=== PATIENT | male | born 1965 | race Caucasian/White ===

== ENCOUNTER 2017-02-01 06:30 | Emergency (ER) | payer SELFPAY ==
[2017-02-01 07:43] VITALS: RESP 14
--- NOTE | 2017-02-01 07:43 | C.PDOC ---
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
--- NOTE | 2017-02-01 07:45 | C.PDOC ---
History Of Present Illness 51 yr old male presents to the ER for methadone withdrawal for the past 1 week. Patient states he was kicked out of his program 1 week ago. Currently patient is complaining of chest pain, myalgia and coughing. Reports he is a smoker. Patient denies fever, SOB, nasal congestion, nausea, vomiting, abdominal pain, weakness or numbness. 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 Constitutional: Positive for: Other ((+) Myalgia ). Negative for: Fever ENT: Negative for: Nose Congestion Cardiovascular: Positive for: Chest Pain Respiratory: Positive for: Cough. Negative for: Shortness of Breath Gastrointestinal: Negative for: Nausea, Vomiting, Abdominal Pain Neurological: Negative for: Weakness, Numbness Physical Exam - Physical Exam Appears: Non-toxic, In Acute Distress (Mild distress) Skin: Warm, Dry, No Rash Head: Atraumatic, Normacephalic Throat: Normal, No Erythema, No Exudate, No Drooling Neck: Normal, Normal ROM, Supple Chest: Symmetrical, No Tenderness Cardiovascular: Rhythm Regular, No Murmur Respiratory: Normal Breath Sounds, No Rales, No Rhonchi, No Wheezing Extremity: Normal ROM, No Swelling Neurological/Psych: Oriented x3, Normal Speech, Normal Motor ED Course And Treatment - Laboratory Results Result Diagrams: 02/01/17 07:52 02/01/17 07:52 ECG: Interpreted By Me ECG Rhythm: Sinus Bradycardia ECG Interpretation: Normal Rate From EC (BPM) O2 Sat by Pulse Oximetry: 99 (RA ) Pulse Ox Interpretation: Normal - Radiology CXR: Interpreted by Me, Viewed By Me CXR Interpretation: Yes: No Acute Disease Progress - Re-Evaluation Re-evaluation Note: 02/01/17 08:46 STILL CO PERSIST GEN PAIN, CP, BACK PAIN. EKG, TROP PENDING no DETOX BED AVAIL PER CRISIS JORDON 02/01/17 09:26 REPEAT EKG [facility] PRIOR. SINUS VASQUEZ @ 50 NO FINDINGS C/W ACS. PT STILL CO GEN BODY ACHES, CHEST PAIN PROBABLE NARCOTIC WITHDRAWAL. - Data Reviewed Data Reviewed: Lab, Diagnostic imaging, Old records Medical Decision Making Medical Decision Making: PLAN: * CXR * CBC * BMP * Clonidine PO * Toradol IVP * Zofran IVP Disposition Counseled Patient/Family Regarding: Studies Performed, Diagnosis, Need For Followup - Disposition Referrals: [facility] [Outside] [facility] [Outside] [facility] [Other] Disposition: HOME/ ROUTINE Disposition Time: 10:45 Condition: GOOD Instructions: Opioid Withdrawal (ED), Noncardiac Chest Pain (ED) - Clinical Impression Clinical Impression: Chest pain, Narcotic withdrawal, Myalgia - Scribe Statement The provider has reviewed the documentation as recorded by the Scribe Sara Morgan Provider Attestation: All medical record entries made by the Scribe were at my direction and personally dictated by me. I have reviewed the chart and agree that the record accurately reflects my personal performance of the history, physical exam, medical decision making, and the department course for this patient. I have also personally directed, reviewed, and agree with the discharge instructions and disposition.
[2017-02-01 07:56] LABS: BASO % 0.8 % (0.0-2.0); EOS # 0.1 K/uL (0.0-0.7); EOS % 4.4 % (0.0-4.0); HEMOGLOBIN 13.7 g/dL (12.0-18.0); LYMPH # 1.2 K/uL (1.0-4.3); LYMPH % 45.1 % (20.0-40.0); MEAN CELL VOLUME 93.3 fL (80.0-94.0); MEAN CORPUSCULAR HEMOGLOBIN 29.9 pg (27.0-31.0); MEAN CORPUSCULAR HGB CONC 32.1 g/dL (33.0-37.0); MEAN PLATELET VOLUME 8.3 fL (7.2-11.7); MONO # 0.5 K/uL (0.0-0.8); MONO % 18.2 % (0.0-10.0); NEUT # 0.8 K/uL (1.8-7.0); NEUT % 31.5 % (50.0-75.0); NRBC % 0.1 % (0.0-2.0); RBC 4.58 Mil/uL (4.40-5.90); RED CELL DISTRIBUTION WIDTH 13.9 % (11.5-14.5); WHITE BLOOD COUNT 2.6 K/uL (4.8-10.8)
[2017-02-01 08:11] LABS: GFR AFRICAN-AMERICAN > 60; GFR NON-AFRICAN AMERICAN > 60
[2017-02-01 08:12] LABS: BLOOD UREA NITROGEN 11 mg/dL (9-20)
[2017-02-01] MEDS ORDERED: Nitroglycerin 2% Ointment Foilpak UD TOP ONE (09:02)
--- NOTE | 2017-02-01 09:22 | RAD ---
HISTORY: COUGH COMPARISON: Comparison chest 07/28/2016 TECHNIQUE: Chest PA and lateral FINDINGS: LUNGS: No active pulmonary disease. PLEURA: No significant pleural effusion identified. No pneumothorax apparent. CARDIOVASCULAR: Normal. OSSEOUS STRUCTURES: Minor multilevel degenerative spondylosis of the thoracic spine. The the VISUALIZED UPPER ABDOMEN: Normal. OTHER FINDINGS: None. IMPRESSION: No active disease.
[2017-02-01 10:21] VITALS: BP 101/64; PULSE 51; TEMP 98
[2017-02-03 07:40] VITALS: O2SAT 99
--- NOTE | 2017-02-05 12:38 | CARD ---
APPROVED REPORT EKG Measurement Heart [id number] <Conclusion> Sinus bradycardia Otherwise normal ECG
--- NOTE | 2017-02-05 12:38 | CARD ---
APPROVED REPORT EKG Measurement Heart [id number] <Conclusion> Sinus bradycardia Otherwise normal ECG
== END 2017-02-01 10:57 | disposition home or self-care (01) ==
LOC: C.ER 06:30
DX: F11.23 Opioid dependence with withdrawal (principal); R07.89 Other chest pain; M79.1 Myalgia; F17.210 Nicotine dependence, cigarettes, uncomplicated
CPT/HCPCS: 71020; 80048; 84484; 85025; 96374; 96375; 99285; J1885; J2405